=== PATIENT | female | born 1985 | race Caucasian/White ===

== ENCOUNTER 2016-11-29 18:51 | Emergency (ER) | payer SELFPAY ==
[~2016-11-29] VITALS: Ht 157.5 cm; Wt 60.3 kg
[2016-11-29 18:51] VITALS: BP_SYST 153
[2016-11-29] MEDS: IBUPROFEN 800 MG TABLET PO ONE (20:54)
[2016-11-29 21:50] VITALS: BP_SYST 140
== END 2016-11-29 21:50 | disposition home or self-care (01) ==
LOC: SED 18:51
DX: J06.9 Acute upper respiratory infection, unspecified (principal)
CPT/HCPCS: 36415; 86403; 87081; 99284

== ENCOUNTER 2018-02-17 21:01 | Emergency (ER) | payer SELFPAY ==
[~2018-02-17] VITALS: Ht 162.6 cm; Wt 63.5 kg
[2018-02-17 21:10] VITALS: BP_SYST 133
[2018-02-17 22:53] LABS: BILIRUBIN,URINE NEGATIVE (NEGATIVE); CLARITY/URINE CLEAR (CLEAR); COLOR,URINE YELLOW (YELLOW); GLUCOSE,URINE NEGATIVE (NEGATIVE); KETONES,URINE NEGATIVE (NEGATIVE); LEUKOCYTE ESTERASE ,URINE 1+ (NEGATIVE); NITRITE, URINE NEGATIVE (NEGATIVE); PROTEIN URINE NEGATIVE (NEGATIVE); UROBILINOGEN,URINE 0.2 (0.2-1.0)
[2018-02-17 22:56] LABS: BLOOD, URINE TRACE (NEGATIVE)
[2018-02-17 23:16] LABS: BACTERIA,URINE MODERATE /HPF (None Seen); RBC,URINE 0-3 /HPF (0-3)
[2018-02-18] MEDS ORDERED: IBUPROFEN 800 MG TABLET PO ONE
[2018-02-18 00:22] VITALS: BP_SYST 128
== END 2018-02-18 00:22 | disposition home or self-care (01) ==
LOC: SED 21:01
DX: S13.9XXA Sprain of joints and ligaments of unspecified parts of neck, initial encounter (principal); S33.5XXA Sprain of ligaments of lumbar spine, initial encounter; F17.200 Nicotine dependence, unspecified, uncomplicated; R03.0 Elevated blood-pressure reading, without diagnosis of hypertension; V89.2XXA Person injured in unspecified motor-vehicle accident, traffic, initial encounter; Y93.89 Activity, other specified; Y92.410 Unspecified street and highway as the place of occurrence of the external cause; Y99.8 Other external cause status
CPT/HCPCS: 72040-TC; 72100-TC; 81000-TC; 87086; 99285